=== PATIENT | female | born 2000 | race Two or more races ===

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

== ENCOUNTER 2019-12-16 08:07 | Emergency (ER) | payer OTHER ==
[~2019-12-16] VITALS: Ht 172.7 cm; Wt 99.0 kg
[2019-12-16 08:24] VITALS: BP 121/66
== END 2019-12-16 09:18 | disposition home or self-care (01) ==
LOC: ED 09:12
DX: J02.0 Streptococcal pharyngitis (principal); K59.00 Constipation, unspecified; F17.200 Nicotine dependence, unspecified, uncomplicated
CPT/HCPCS: 99283